=== PATIENT | male | born 1990 | race Caucasian/White ===

== ENCOUNTER 2024-05-27 11:32 | Emergency (ER) | payer MEDICAID ==
[~2024-05-27] VITALS: Ht 170.2 cm; Wt 83.4 kg
[2024-05-27] MEDS: FLUORESCEIN SOD OPTH TEST STRIP OP ONE (12:52)
[2024-05-27] MEDS: TETRACAINE HCL 0.5% OPTH(EYE) SOLN 4ML LEFTEYE ONE (12:52)
[2024-05-27] MEDS ORDERED: TOB03OS OP (13:03)
[2024-05-27 13:06] VITALS: BP 123/75; PULSE 85; RESP 16; TEMP 98.6; O2SAT 96
== END 2024-05-27 13:16 | disposition home or self-care (01) ==
LOC: ER 11:32
DX: S05.02XA Injury of conjunctiva and corneal abrasion without foreign body, left eye, initial encounter (principal); Z79.899 Other long term (current) drug therapy; X58.XXXA Exposure to other specified factors, initial encounter; Y93.89 Activity, other specified; Y92.89 Other specified places as the place of occurrence of the external cause; Y99.8 Other external cause status

== ENCOUNTER 2024-09-11 17:36 | Emergency (ER) | payer MEDICAID ==
[~2024-09-11] VITALS: Ht 170.2 cm; Wt 87.6 kg
[~2024-09-11 17:36] MED LIST: TOB03OS OP
[2024-09-11 18:16] VITALS: PULSE 52; RESP 18; O2SAT 97
[2024-09-11] MEDS: TETANUS-DIPTH-ACEL PERTUSSIS 0.5ML SYR Tdap IM ONE (18:16)
[2024-09-11] MEDS: LIDOCAINE 1% HCL (LOCAL ANESTH.) INJ 20ML MDV ID ONE (18:16)
[2024-09-11] MEDS: KETOROLAC TROMETH 60MG/2ML VIAL IM ONE (18:17)
--- NOTE | 2024-09-11 18:40 | ED.PDOC ---
History of Present Illness HPI Comments 34M presents to the ER w/ no prior Hx associated to the c/c of a LAC. Pt reports that he was welding his car frame in his garage and when he sat down, the car frame fell and landed on the pt's right hand middle finger giving a LAC on the distal Phalanx which is 1cm. Pt request is for the pain relief not to give him any narcotics. Denies chills, fever, N/V/D, SOB, CP or other associated symptom's, modifiers, or recent injuries or sick contact at this time. Chief Complaint: Laceration Time Seen by MD: 17:50 Reviewed Notes: Nurses Notes, Medications, Allergies Allergies: Coded Allergies: NO KNOWN ALLERGIES (Unverified , 05/27/24) Home Meds Active Scripts Tobramycin Sulfate (Tobrex) [address], 4 DROP OP QID, #5 ML Prov:ERNIE ARAMBULA 05/27/24 Information Source: Patient Mode of Arrival: Ambulatory Severity: Moderate Timing: Minutes Duration: Since onset, Minutes Prehospital treatment: None Past Medical History PAST MEDICAL HISTORY: Denies Surgical History: Denies all surgeries Family History Family History: Reviewed,noncontributory to illness, Unknown Social History Smoker: Non-Smoker Alcohol: Denies ETOH Use Drugs: Denies Drug Use Lives In: Home Constitutional: reports: others (Laceration); denies: chills, diaphoresis, fatigue, fever, malaise, sweats, weakness EENTM: denies: blurred vision, double vision, ear bleeding, ear discharge, ear drainage, ear pain, ear ringing, eye pain, eye redness, hearing loss, mouth pain, mouth swelling, nasal discharge, nose bleeding, nose congestion, nose pain, photophobia, tearing, throat pain, throat swelling, voice changes, others Respiratory: denies: cough, hemoptysis, orthopnea, SOB at rest, shortness of breath, SOB with excertion, stridor, wheezing, others Cardiovascular: denies: chest pain, dizzy spells, diaphoresis, Dyspnea on exertion, edema, irregular heart beat, left arm pain, lightheadedness, palpitations, PND, syncope, others Gastrointestinal: denies: abdomen distended, abdominal pain, blood streaked bowels, constipated, diarrhea, dysphagia, difficulty swallowing, hematemesis, melena, nausea, poor appetite, poor fluid intake, rectal bleeding, rectal pain, vomiting, others Genitourinary: denies: burning, dysuria, flank pain, frequency, hematuria, incontinence, penile discharge, penile sore, pain, testicle pain, testicle swelling, urgency, others Neurological: denies: dizziness, fainting, headache, left sided numbness, left sided weakness, numbness, paresthesia, pre-existing deficit, right sided numbness, right sided weakness, seizure, speech problems, tingling, tremors, weakness, others Musculoskeletal: denies: back pain, gout, joint pain, joint swelling, muscle pain, muscle stiffness, neck pain, others Integumetry: denies: bruises, change in color, change in hair/nails, dryness, laceration, lesions, lumps, rash, wounds, others Allergic/Immunocompromised: denies: Difficulty Healing, Frequent Infections, Hives, Itching, others Hematologic/Lymphatic: denies: anemia, blood clots, easy bleeding, easy bruising, swollen glands, others Endocrine: denies: excessive hunger, excessive sweating, excessive thirst, excessive urination, flushing, intolerance to cold, intolerance to heat, unexplained weight gain, unexplained weight loss, others Psychiatric: denies: anxiety, bipolar disorder, depression, hopeless, panic disorder, schizophrenia, sleepless, suicidal, others All Other Systems: Reviewed and Negative Physical Exam Exam Comments Right middle finger, distal phalanx 1cm LAC General Appearance: No Apparent Distress, Normal HEENT: Normal ENT Inspection, Pharynx Normal, TMs Normal Neck: Full Range of Motion, Non-Tender, Normal, Normal Inspection Respiratory: Chest Non-Tender, Lungs Clear, No Accessory Muscle Use, No Respiratory Distress, Normal Breath Sounds Cardiovascular: No Edema, No JVD, No Murmur, No Gallop, Normal Peripheral Pulses, Regular Rate/Rhythm Breast Exam: Deferred Gastrointestinal: No Organomegaly, Non Tender, No Pulsatile Mass, Normal Bowel Sounds, Soft Genitalia: Deferred Pelvic: Deferred Rectal: Deferred Extremities: No calf tenderness, Normal capillary refill, Normal inspection, Normal range of motion, Non-tender, No pedal edema Musculoskeletal : Apperance: Normal Neurologic: 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 Was a procedure done?: Yes Sedation Sedation?: No Informed consent obtained: Yes Laceration Repair : Location right distal middle finger 2 stitches of running interlocking 4.0 ethilon suture placed after digital block and after sterile saline irrigation of wound Length 1cm Other Procedure Procedure finger splinting applied properly. pt tolerated it well digital block for the right middle finger used with good anesthetic result Differential Dx Considerations may include: finger laceration, amputation, fracture, dislocation, crush injury X-Ray, Labs, Meds, VS Vital Signs Date Time Temp Pulse Resp B/P (MAP) Pulse Ox O2 Delivery O2 Flow Rate FiO2 09/11/24 18:16 98.1 71 18 128/90 (103) 100 98.1 09/11/24 18:16 98.1 71 18 128/90 (103) 100 98.1 09/11/24 18:16 52 18 97 Room Air* 0 21 09/11/24 18:16 71 18 100 Room Air 09/11/24 17:42 99.0 59 18 131/105 (114) 98 Current Medications Medications (Trade) Dose Ordered Sig/Opal Route Start Time Stop Time Status Last Admin Ketorolac Tromethamine (Toradol Injection) 60 mg ONCE ONCE IM 09/11/24 18:00 09/11/24 18:01 DC 09/11/24 18:17 Diphtheria/ Tetanus/Acell Pertussis (Boostrix T-Dap) 0.5 ml ONCE ONCE IM 09/11/24 18:00 09/11/24 18:01 DC 09/11/24 18:16 Time of 1ST Reevaluation: 18:20 Reevaluation 1ST: Unchanged Time of 2ND Reevaluation: 19:45 Reevaluation 2ND: Improved Patient Education/Counseling: Diagnosis, Treatment, Prognosis, Need For Follow Up Family Education/Counseling: No Family Present Additional Information - I reviewed the following notes from patient's past medical encounters:05/27/24 - The following tests were ordered, and results were reviewed by me: PHA, X-Ray - I reviewed and agreed with the following test results read by other provider: X-ray - I discussed treatments and results with medical personnel and: (consultants, family) although pt has an open fracture, this is the very distal tuft of the middle finger. we were able to use large volume sterile saline to irrigate the wound well, update his tdap, given rocephin im, explored for FB, before repairing the wound. pt is safe to follow up closely with us and be on antibiotic Departure 1 Departure Time of Disposition: 19:39 Impression: Primary Impression: Open fracture of tuft of distal phalanx of finger Disposition: HOME / SELF CARE / HOMELESS Condition: Good Additional Instructions: return for wound check in 2 days. start your antibiotic in AM. return for any signs of an infection or any concerns e-Prescriptions Ibuprofen Micronized (MOTRIN TABLET) 600 Mg Tb 600 MG PO TID PRN, #40 TAB *Black box warning-NSAIDS can increase risk of NE & hypertension, GI irritation, ulceration, bleed, perferation. Do not use post cardiac surgery. Use short duration/lowest effective dose. Prov: RUTHIE KONG MD 09/11/24 Cephalexin Monohydrate (Cephalexin) 500 Mg Tab 500 MG PO QID for 7 Days, #28 TAB Prov: RUTHIE KONG MD 09/11/24 Discharged With: Self Critical Care Note Critical Care Time?: No Stability Stability form required: No I personally scribed for RUTHIE KONG MD ([email or web address]) on 09/11/24 at 18:40. Electronically submitted by Lencho Chavis ([email or web address]). RUTHIE KONG MD Sep 11, 2024 18:40
--- NOTE | 2024-09-11 18:42 | DVH ---
CLINICAL INDICATION: injury TECHNIQUE: 3 radiographic views of the right 3rd digit were obtained. Comparison: None FINDINGS/IMPRESSION: There is acute mildly displaced fracture of the distal part of the 3rd digit distal phalanx with asso ciated soft tissue edema wound. The visualized joint space is well maintained. The alignment is anatomical.
[2024-09-11] MEDS ORDERED: CEPH500T PO (19:42)
[2024-09-11] MEDS ORDERED: IBU600T PO (19:42)
[2024-09-11] MEDS: cefTRIAXone W LIDOCAINE 1 GM IM IM ONE (19:56)
[2024-09-11] MEDS: cefTRIAXone SOD 1,000 MG VL IM ONE (20:01)
[2024-09-11 20:16] VITALS: BP 120/82; PULSE 70; RESP 17; TEMP 98.4; O2SAT 98
== END 2024-09-11 20:16 | disposition home or self-care (01) ==
LOC: ER 17:36
DX: S62.632B Displaced fracture of distal phalanx of right middle finger, initial encounter for open fracture (principal); Z79.899 Other long term (current) drug therapy; W22.8XXA Striking against or struck by other objects, initial encounter; Y93.89 Activity, other specified; Y92.89 Other specified places as the place of occurrence of the external cause; Y99.8 Other external cause status
CPT/HCPCS: 29130; 73140; 90471; 90715; 96372; 99284; J0696; J1885; J2003

== ENCOUNTER 2025-02-11 15:11 | Emergency (ER) | payer MEDICAID ==
[~2025-02-11] VITALS: Ht 139.7 cm; Wt 83.1 kg
[~2025-02-11 15:11] MED LIST changes: +CEPH500T PO; +IBU600T PO
[2025-02-11 16:38] LABS: Urine Bacteria None Seen /hpf (None Seen)
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
[2025-02-11 16:47] LABS: Urine Blood 2+ /uL (Negative); Urine Clarity Clear (Clear); Urine Color Yellow (Yellow); Urine Protein, UAD Negative (Negative); Urine Specific Gravity 1.025 (1.001-1.035); Urine Squamous Epithelial Cell FEW /hpf (<5); Urine Urobilinogen Normal (Negative); Urine WBC 3 /HPF (0-3); Urine pH 5.5 (5.0-9.0)
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
[2025-02-11] MEDS ORDERED: IBUP-1455 PO (18:04)
[2025-02-11] MEDS: KETOROLAC TROMETH 60MG/2ML VIAL IM ONE (19:44)
[2025-02-11 19:48] VITALS: BP 117/70; PULSE 83; RESP 18; TEMP 98.9; O2SAT 100
== END 2025-02-11 21:16 | disposition home or self-care (01) ==
LOC: ER 15:11
DX: S39.012A Strain of muscle, fascia and tendon of lower back, initial encounter (principal); R51.9 Headache, unspecified; Z79.899 Other long term (current) drug therapy; V89.2XXA Person injured in unspecified motor-vehicle accident, traffic, initial encounter; Y93.I9 Activity, other involving external motion; Y92.89 Other specified places as the place of occurrence of the external cause; Y99.8 Other external cause status
CPT/HCPCS: 70450; 72070; 72100; 81001; 96372; 99285; J1885